=== PATIENT | male | born 1960 | race Caucasian/White ===

== ENCOUNTER → 2023-12-12 09:19 | Outpatient (CLI) | payer MEDICARE, OTHER, SELFPAY ==
[2023-12-12 10:36] LABS: Cholesterol 204 mg/dL (140-199); HDL Cholesterol 54 mg/dL (40-60); LDL Cholesterol Calculated 132 mg/dL (<100); Triglycerides 90 mg/dL (35-150)
[2023-12-13 04:38] LABS: Hepatitis B Core Antibody Negative (Negative)
== END ==
LOC: LAB 09:20
PROVIDERS: PCP Family Medicine; Referring Provider Family Medicine; Visit Provider Family Medicine
DX: Z11.59 Encounter for screening for other viral diseases (principal); Z13.220 Encounter for screening for lipoid disorders
CPT/HCPCS: 36415; 80061; 86704

== ENCOUNTER → 2023-12-23 13:17 | Outpatient (CLI) | payer MEDICARE, OTHER, SELFPAY ==
[2023-12-24 14:56] LABS: Fecal Immunochemical Test Negative (Negative)
== END ==
LOC: LAB 13:18
PROVIDERS: PCP Family Medicine; Referring Provider Family Medicine; Visit Provider Family Medicine
DX: Z12.11 Encounter for screening for malignant neoplasm of colon (principal)
CPT/HCPCS: 82274

== ENCOUNTER → 2024-06-16 12:21 | Outpatient (CLI) | payer MEDICARE, OTHER, SELFPAY ==
--- NOTE | 2024-06-16 12:23 | DI.RAD.S_ITS ---
PROCEDURE: XR CHEST 2V INDICATIONS: Cough TECHNIQUE: 2 views of the chest were acquired. COMPARISON: None. FINDINGS: Heart, mediastinum and pulmonary vascular: Heart is normal in size and configuration. Mediastinum is unremarkable. Pulmonary vascular is normal. Lungs: Clear Pleural spaces: Normal-no effusions or pneumothorax. Bones and soft tissues: Normal IMPRESSION: Normal chest. Dictated by: Karel Hardwick M.D. on 06/17/2024 at 16:10 Approved by: Karel Hardwick M.D. on 06/17/2024 at 16:10
== END ==
PROVIDERS: PCP Family Medicine; Referring Provider Nurse Practitioner Family; Visit Provider Nurse Practitioner Family
DX: R05.9 Cough, unspecified (principal)
CPT/HCPCS: 71046

== ENCOUNTER 2025-03-08 15:14 | Emergency (ER) | payer MEDICARE, OTHER, SELFPAY ==
[2025-03-08] VITALS (10 sets, daily range): BP systolic 140–178; BP diastolic 70–97; PULSE 49–74; RESP 18; TEMP 36.2; O2SAT 98–100; BMI 29.1
--- NOTE | 2025-03-08 18:12 | ED.HA ---
HPI - Headache General Chief Complaint: Headache Stated Complaint: Headaches, Confusion, Head pulsations, from W.I.C Time Seen by Provider: 03/08/25 18:12 Mode of arrival: Ambulatory History of Present Illness HPI Narrative: Patient is a 64-year-old male with a past medical history of hypertension, migraines comes into the ED from walk-in clinic for evaluation of multiple complaints, patient has been complaining of headaches intermittent confusion brain fog ongoing presents for the past month, also feels a pulsation in his head that feels like it radiates his arm when he sleeps. He denies any recent trauma or falls not on any blood thinners. At time of initial evaluation patient with NIH of 0 no focal deficits, he is able to stand bear weight ambulate unassisted in the emergency department. Denies any other symptoms such as chest pain shortness breath fever chills nausea vomiting abdominal pain or any other GI/ symptoms time. Related Data Home Medications ?Medication ?Instructions ?Recorded ?Confirmed sodium,potassium,mag sulfates 17.5 PO 11/27/23 11/27/23 gram-3.13 gram-1.6 gram oral soln Previous Rx's ?Medication ?Instructions ?Recorded tramadol 25 mg tablet 25 mg PO Q6H PRN pain #15 tabs 11/27/23 varicella-zoster glycoE [id number] 0.5 ml IM ONCE #2 ea 11/27/23 adj(PF) 50 mcg/0.5 mL IM susp, kit (Shingrix (PF)) benzonatate 200 mg capsule 200 mg PO BID PRN cough #28 caps 06/16/24 losartan 25 mg tablet 25 mg PO DAILY #90 tabs 12/28/24 Allergies Allergy/AdvReac Type Severity Reaction Status Date / Time No Known Drug Allergies Allergy Verified 03/08/25 15:24 Review of Systems Review of Systems Narrative: General: Denies fever, chills, weight loss HEENT: Positive headache, denies eye drainage, eye irritation, head trauma, sore throat, voice change Cardiovascular: Denies any chest pain, palpitations, tachycardia Respiratory: Denies any shortness of breath, cough, wheeze, stridor GI/: Denies any abdominal pain, nausea, vomiting, diarrhea, bright red blood per rectum, melanotic stools, urinary frequency, urinary retention, dysuria, hematuria MSK: Denies any joint pain, muscle pains, swelling Skin: Denies any rashes, lesions, discoloration Neuro: Positive brain fog,, dizziness lightheadedness Denies any fainting, weakness Psych: Denies SI/HI Patient History Medical History (Updated 03/08/25 @ 20:03 by Peter Gutierrez DO) Vision disorder Decreased hearing Sleep apnea (~2016) Neck pain Shoulder pain Mumps Chicken pox Vertigo (~10/2016) Tinnitus Kidney stones (~1999) Hemorrhoid Hypertension Herniation of intervertebral disc between L4 and L5 Surgical History (Updated 12/27/23 @ 19:56 by Annette Figueredo) Anesthesia S/P manipulation of acromioclavicular joint History of nephrolithotomy with removal of calculi Social History Smoking Status: Never smoker Smoking Status: Never smoker Exam Narrative Exam Narrative: General: Cooperative, well-developed, not in acute distress HEENT: Normocephalic, atraumatic, PERRLA, normal sclera, eyelids normal Neck: Active full range of motion, atraumatic Chest: Normal to inspection, negative crepitus, no overlying erythema ecchymosis Respiratory: Normal respiratory effort, not in acute respiratory distress, clear to auscultation bilaterally negative cough, wheeze, tachypnea, rhonchi, rales Cardiology: Regular rate rhythm negative gallop, murmur, rubs GI/: No tenderness to palpation, soft, non rigid, normal to inspection, exam deferred MSK: Full active range of motion in all 4 extremities, atraumatic, no tenderness to palpation of any bony prominences Skin: No rashes or lesions noted Neuro: NIH of 0 no focal deficits Alert awake oriented x3, moves all 4 extremities spontaneously, cranial nerves intact, able to answer all questions appropriately follows commands appropriately Psych: Cooperative, negative suicidal or homicidal ideations Initial Vital Signs Initial Vital Signs: Vital Signs Temperature 97.2 F L 03/08/25 15:19 Pulse Rate 74 03/08/25 15:19 Respiratory Rate 18 03/08/25 15:19 Blood Pressure 164/97 H 03/08/25 15:19 Pulse Oximetry 98 03/08/25 15:19 Oxygen Delivery Method Room Air 03/08/25 15:19 Course Orders Ordered: ED Orders 03/08/25 18:29 XR chest 1V Stat EKG-12 Lead Stat 03/08/25 18:30 CT head/brain wo con Stat Covid-19 + FLU A/B + RSV - PCR Stat 03/08/25 19:11 Complete Blood Count AUTO DIFF Stat Comprehensive Metabolic Panel Stat Lipase Stat MAG [Magnesium] Stat Troponin & CK Cardiac Panel Stat Discontinued Medications Sodium Chloride (Normal Saline 0.9%) 1,000 mls @ 1,000 mls/hr IV BOLUS ONE Stop: 03/08/25 19:28 Last Admin: 03/08/25 19:11 Dose: 1,000 mls/hr Documented By: RONEN Vital Signs Vital signs: Vital Signs - 8 hr 03/08/25 15:19 03/08/25 17:37 03/08/25 17:38 Temperature 97.2 F L Pulse Rate 74 53 L Respiratory Rate 18 Blood Pressure 164/97 H Pulse Oximetry 98 100 99 Oxygen Delivery Method Room Air 03/08/25 17:38 Temperature Pulse Rate Respiratory Rate Blood Pressure 140/80 Pulse Oximetry Oxygen Delivery Method MDM - Headache Differential Diagnosis Differential diagnosis: Likely migraine, tension headache, subarachnoid hemorrhage, headache and other (ACS, pneumonia, electrolyte abnormality) Lab Data 03/08/25 19:11 03/08/25 19:11 Labs: Lab Results 03/08/25 Range/Units 19:11 WBC 7.9 (4.5-11.0) X10^3/uL RBC 4.98 (4.5-5.9) X10^6/uL Hgb 15.2 (13.5-17.5) g/dL Hct 43.9 (41-53) % MCV 88.2 (80-100) fL MCH 30.5 (26-34) PG MCHC 34.6 (30-36) % RDW 13.5 (11.6-14.8) % Plt Count 199 (150-400) X10^3/uL Neut % (Auto) 52.4 (50-75) % Lymph % (Auto) 36.3 (25-40) % [place]ance[place] % (Auto) 7.7 (3-14) % Eos % (Auto) 3.1 (2-4) % Baso % (Auto) 0.5 (0-2) % Neut # (Auto) 4200 (4270-7293) /uL Lymph # (Auto) 2900 (7305-7872) /uL Yancey # (Auto) 600 (0-900) /uL Eos # (Auto) 200 (0-450) /uL Baso # (Auto) 0 (0-100) /uL Sodium 137 (137-145) mmol/L Potassium 4.0 (3.4-5.1) mmol/L Chloride 105 (98-107) mmol/L Carbon Dioxide 26 (22-32) mmol/L BUN 19 (9-20) mg/dL Creatinine 1.06 (0.66-1.25) mg/dL Estimated GFR > 60 (>60) mL/min BUN/Creatinine Ratio 17.9 (6-22) Glucose 85 (70-99) mg/dL Calcium 9.2 (8.4-10.2) mg/dL Magnesium 2.1 (1.6-2.3) mg/dL Total Bilirubin 0.8 (0.2-1.3) mg/dL AST 25 (17-59) IU/L ALT 19 (<50) IU/L Alkaline Phosphatase 52 (38-126) U/L Total Creatine Kinase 40 L (55-170) U/L Troponin I < 0.012 (0.01-0.034) ng/mL Total Protein 7.6 (6.3-8.2) g/dL Albumin 4.4 (3.5-5.0) g/dL Globulin 3.2 (1.7-4.1) g/dL Albumin/Globulin Ratio 1.4 (1.0-2.8) Lipase 167 (23-300) U/L Urine Dip Bedside Urine Glucose Negative Bedside Urine Bilirubin - Negative Bedside Urine Ketone - Negative Urine Specific [place] 1.020 Bedside Urine Occult Blood - Negative Bedside Urine pH 6.0 Bedside Urine Protein - Negative Bedside Urine Urobilinogen - Negative Bedside Urine Nitrite - Negative Bedside Urine Leukocytes - Negative Esterase Imaging Data Chest x-ray: Radiologist's Impression: [address] [address] XRay Report Signed Patient: Frank Gramajo MR#: [id number] : 1960 Acct:[id number] Age/Sex: 64 / M Date of Service: 03/08/25 Loc: ED Accession Number: [id number] Procedure: XR chest 1V Ordering Provider: Peter Gutierrez D.O. PROCEDURE: XR CHEST 1V INDICATIONS: dizziness TECHNIQUE: One view of the chest was acquired. COMPARISON: [facility], CR, XR CHEST 2V, 06/16/2024, 12:39. FINDINGS AND IMPRESSION: On this single view study, no airspace consolidation or pleural effusion is seen. Unchanged mediastinal contours. Heart size is at the upper limit of normal. Degenerative osseous changes. CT scan - head: Radiologist's Impression: [address] [address] [address] Scan Report Signed Patient: Frank Gramajo MR#: [id number] : 1960 Acct:[id number] Age/Sex: 64 / M Date of Service: 03/08/25 Loc: ED Accession Number: [id number] Procedure: CT head/brain wo con Ordering Provider: Peter Gutierrez D.O. PROCEDURE: CT HEAD/BRAIN WO CON INDICATIONS: brain fog TECHNIQUE: Noncontrast 4.5 mm thick angled axial sections acquired from the foramen magnum to the vertex, with coronal and sagittal reformats. For radiation dose reduction, the following was used: automated exposure control, adjustment of mA and/or kV according to patient size. COMPARISON: None. FINDINGS: Image quality: Diagnostic CSF spaces: Basal cisterns are patent. Lateral ventricles are symmetric. Volume: Vascular calcifications. Periventricular white matter disease is commonly seen with chronic microangiopathy. Volume loss is present. These findings are [id number] Brain: No intracranial hemorrhage. Curran-white differentiation is grossly maintained. Empty sella incidentally noted. Craniofacial structures: No significant paranasal sinus opacity. IMPRESSION: No acute intracranial abnormality. If there is high concern for parenchymal pathology, consider further evaluation with MRI. ECG Data Interpretation: EKG interpreted ED physician sinus bradycardia 52 beats per minute QTC 398, QRS AZ interval within normal limits, negative STEMI MDM Narrative Medical decision making narrative: Patient is a 64-year-old male with a past medical history hypertension presenting for multiple complaints, patient has been having headaches dizziness ongoing persistent for the past 6 weeks, also complaining of some mild brain fog and mild confusion but at time of evaluation patient is A&O x4 no focal deficits his NIH of 0, he is able to stand bear weight ambulate unassisted able to answer all questions appropriately. He denies any recent trauma or falls not on any blood thinners. Patient had lab work imaging urinalysis EKG performed here in the emergency department. EKG without any ischemic changes, chest x-ray without any acute cardiopulmonary abnormality, CT scan without any acute findings, lab work unremarkable urinalysis without any acute signs of infection, at this time there is not a known reason for patient's symptoms however he is without any focal deficits, I did instruct him to follow up with his primary care doctor, he states that he has already scheduled an appointment with them, patient was given strict return precautions verbalized understanding of this and agrees to being discharged home with outpatient follow up Discharge Plan Departure Patient Disposition: Home Clinical Impression: Brain fog Activity Restrictions/Additional Instructions: Please follow up with your primary care doctor Please read the discharge instructions sheet carefully and bring all papers to all doctor follow-up visits, as it may contain information that your doctor may want to see. Disease processes change and evolve, if your symptoms worsen or if you develop any new symptoms that are concerning to you please return for evaluation. Your evaluation today does not show any evidence of any life-threatening/serious illnesses requiring admission to the hospital or surgery. Please follow-up with your doctor for re-evaluation in approximately 1 day. Seek immediate medical attention for any worrisome symptoms. *If you do not have a primary care provider please contact the [facility] Resource line at [phone]. They will ask some questions about your medical history and help get you set up with a doctor in the community. Prescriptions: No Action sodium,potassium,mag sulfates 17.5-3.13-1.6 gram recon soln PO tramadol 25 mg tablet 25 mg PO Q6H PRN (Reason: pain) Qty: 15 0RF Shingrix (PF) 50 mcg/0.5 mL suspension for reconstitution 0.5 ml IM ONCE Qty: 2 0RF Rx Instructions: one dose at 0 months, repeat dose in 1-2 months for 2 dose series completion benzonatate 200 mg capsule 200 mg PO BID PRN (Reason: cough) Qty: 28 0RF losartan 25 mg tablet 25 mg PO DAILY Qty: 90 0RF Referrals: Isaura Li MD [Primary Care Provider, Family Practice] Stand Alone Forms: Patient Portal/API
--- NOTE | 2025-03-08 18:29 | DI.RAD.S_ITS ---
PROCEDURE: XR CHEST 1V INDICATIONS: dizziness TECHNIQUE: One view of the chest was acquired. COMPARISON: [facility], , XR CHEST 2V, 06/16/2024, 12:39. FINDINGS AND IMPRESSION: On this single view study, no airspace consolidation or pleural effusion is seen. Unchanged mediastinal contours. Heart size is at the upper limit of normal. Degenerative osseous changes. Dictated by: Ralph Verma M.D. on 03/08/2025 at 18:55 Approved by: Ralph Verma M.D. on 03/08/2025 at 18:56
--- NOTE | 2025-03-08 18:30 | DI.CT.S_ITS ---
PROCEDURE: CT HEAD/BRAIN WO CON INDICATIONS: brain fog TECHNIQUE: Noncontrast 4.5 mm thick angled axial sections acquired from the foramen magnum to the vertex, with coronal and sagittal reformats. For radiation dose reduction, the following was used: automated exposure control, adjustment of mA and/or kV according to patient size. COMPARISON: None. FINDINGS: Image quality: Diagnostic CSF spaces: Basal cisterns are patent. Lateral ventricles are symmetric. Volume: Vascular calcifications. Periventricular white matter disease is commonly seen with chronic microangiopathy. Volume loss is present. These findings are [id number] Brain: No intracranial hemorrhage. Curran-white differentiation is grossly maintained. Empty sella incidentally noted. Craniofacial structures: No significant paranasal sinus opacity. IMPRESSION: No acute intracranial abnormality. If there is high concern for parenchymal pathology, consider further evaluation with MRI. Dictated by: Ralph Verma M.D. on 03/08/2025 at 18:56 Approved by: Ralph Verma M.D. on 03/08/2025 at 18:57
--- NOTE | 2025-03-08 18:56 | EKG_ITS ---
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
[2025-03-08] MEDS: SODIUM CHLORIDE 0.9% 1,000 ML 1000 ML IV (19:11)
[2025-03-08 19:19] LABS: Add Manual Diff / Slide Review NO; Hematocrit 43.9 % (41-53); Hemoglobin 15.2 g/dL (13.5-17.5); Lymphocytes Absolute Auto 2900 /uL (1100-4500); Mean Corpuscular HGB Conc 34.6 % (30-36); Mean Corpuscular Hemoglobin 30.5 PG (26-34); Mean Corpuscular Volume 88.2 fL (80-100); Platelet Count 199 X10^3/uL (150-400)
[2025-03-08 19:31] LABS: Magnesium 2.1 mg/dL (1.6-2.3)
[2025-03-08 19:32] LABS: Alanine Aminotransferase 19 IU/L (<50); Albumin 4.4 g/dL (3.5-5.0); Albumin Globulin Ratio 1.4 (1.0-2.8); Alkaline Phosphatase 52 U/L (38-126); Blood Urea Nitrogen 19 mg/dL (9-20); Calcium 9.2 mg/dL (8.4-10.2); Carbon Dioxide 26 mmol/L (22-32); Chloride 105 mmol/L (98-107); Creatine Kinase 40 U/L (55-170); Estimated Glomerular Filt Rate > 60 mL/min (>60); Globulin 3.2 g/dL (1.7-4.1); Glucose 85 mg/dL (70-99); HEMOLYSIS < 15 (0-50); Lipase 167 U/L (23-300); Potassium 4.0 mmol/L (3.4-5.1); Sodium 137 mmol/L (137-145); Total Protein 7.6 g/dL (6.3-8.2)
[2025-03-08 19:43] LABS: Troponin I < 0.012 ng/mL (0.01-0.034)
== END 2025-03-08 20:25 | disposition home or self-care (01) ==
PROVIDERS: Emergency Provider Student in an Organized Health Care Education/Training Program; PCP Family Medicine
DX: R41.89 Other symptoms and signs involving cognitive functions and awareness (principal); R41.0 Disorientation, unspecified; R42 Dizziness and giddiness
CPT/HCPCS: 36415; 70450; 71045; 80053; 81003; 82550; 83690; 83735; 84484; 85025; 93005; 96360; 99284